=== PATIENT | male | born 1960 | race Caucasian/White ===

== ENCOUNTER 2017-12-27 00:30 | Inpatient (IN) | payer OTHER ==
[2017-12-26 13:25] LABS: INR 0.96
[2017-12-27] VITALS (11 sets, daily range): BP systolic 132–152; BP diastolic 41–98
[~2017-12-27] VITALS: Ht 177.8 cm; Wt 108.0 kg
[~2017-12-27 00:30] MED LIST: ASCO-182 PO; ASPI-1471 PO; ATEN-1 PO; CIDE300T4 PO; LISI20TA29 PO; OMEG-24 PO; SOUR1000 PO; apple cider vinegar PO
[2017-12-27] MEDS ORDERED: LIDOCAINE MPF 1% 5 ML VIAL ONE (07:42)
[2017-12-27] MEDS ORDERED: ONDANSETRON 4 MG/2 ML VIAL ONE (07:42)
[2017-12-27] MEDS ORDERED: DEXAMETHASONE SOD PHOS 10MG/ML ONE (07:42)
[2017-12-27] MEDS ORDERED: fentaNYL CITR 100 MCG/2 ML AMP ONE (07:42)
[2017-12-27] MEDS ORDERED: PROPOFOL EMUL(*) 10MG/ML 20 ML 20 ML ONE (07:42)
[2017-12-27] MEDS ORDERED: ACETAMINOPHEN(*)1000 MG/100 ML 100 ML IVPB ONE (08:34)
[2017-12-27] MEDS ORDERED: LIDOCAINE/SOD BICARB 8.4% SYR ID ONE (09:00)
[2017-12-27] MEDS ORDERED: FAMOTIDINE 20 MG TAB PO ONE (09:00)
[2017-12-27] MEDS ORDERED: ASPIRIN 325 MG ENTERIC COATED PO SCH (09:00)
[2017-12-27] MEDS ORDERED: TRANEXAMIC AC 1000 MG/10ML SDV 1,000 MG in DEXTROSE 5% 50 ML BAG 50 ML IV ONE (09:00)
[2017-12-27] MEDS ORDERED: NORMOSOL R SOLN(*) 1000 ML BAG 1,000 ML IV PRN ×2 (09:00→11:40)
[2017-12-27] MEDS ORDERED: MIDAZOLAM 2 MG/2 ML VIAL IVP ONE (09:00)
[2017-12-27] MEDS ORDERED: ceFAZolin(*) 2GM/D5W 50ML 50 ML IVPB ONE (09:00)
[2017-12-27] MEDS ORDERED: cloNIDine EPIDUR INJ 100MCG/ML 40 MCG, ROPIVACAINE 0.5% 20 ML VIAL 25 ML, EPINEPHrine H... INJ ONE (09:00)
[2017-12-27] MEDS ORDERED: BISACODYL 10 MG SUPP PR PRN (11:40)
[2017-12-27] MEDS ORDERED: MAGNESIUM HYDROXIDE* 30ML UDCP PO PRN (11:40)
[2017-12-27] MEDS ORDERED: PROMETHAZINE 25 MG/ML 1 ML AMP IVP PRN (11:40)
[2017-12-27] MEDS ORDERED: ONDANSETRON 4 MG/2 ML VIAL IVP PRN (11:40)
[2017-12-27] MEDS ORDERED: ZOLPIDEM TARTRATE 5 MG TAB PO PRN (11:40)
[2017-12-27] MEDS ORDERED: MORPHINE SULFATE 30 MG PCA IV PRN (11:40)
[2017-12-27] MEDS ORDERED: NALOXONE HCL 0.4 MG/ML VIAL IVP PRN (11:40)
[2017-12-27] MEDS ORDERED: FLUSH 10 ML SYR IVP PRN (11:40)
[2017-12-27] MEDS: oxyCODONE HCL 5 MG CAP PO PRN ×3 (14:12→21:01)
[2017-12-27] MEDS: ACETAMINOPHEN 500 MG TAB PO SCH ×2 (14:20→19:28)
--- NOTE | 2017-12-27 15:29 | History & Physical ---
History of Present Illness Chief Complaint s/p L-TKA and management of medical conditions during this hospitalization History of Present Illness Mr. Jefferson is a 57 y.o. male with PMH of HTN on Atenolol 50mg and Lisinopril 20mg daily, Gout, Dyslipidemia on Fish oil and Osteoarthritis. He is post op L-TKA by Dr. Hernandez and he tolerated the procedure. He is asymptomatic and without any complaint. I was asked to manage his medical problems during his stay. I have advised him to avoid high oxalate and uric acid diet and beer for his gout and cut down his Vit.C to 500mg/d and also drink more fluids History Home Meds Reported Medications [apple cider vinegar] No Conflict Check, 0.5 OZ PO QDAY 12/20/17 Sour Love Extract (Tart Love Extract) 1,000 Mg Capsule, PO QDAY 12/20/17 Ascorbic Acid (VITAMIN C) 500 Mg Tablet, 1000 MG PO QDAY, TAB 12/20/17 Entiat-3 Fatty Acids/Fish Oil (FISH OIL 1,200 MG SOFTGEL) 1 Each Capsule, 1 EACH PO, CAPSULE 12/20/17 Aspirin (ASPIR 81) 81 Mg Tablet.dr, 81 MG PO QDAY, TAB 12/20/17 Lisinopril (LISINOPRIL) 20 Mg Tablet, 20 MG PO QDAY, TAB 12/20/17 Atenolol (ATENOLOL) 50 Mg Tablet, 1 TAB PO QDAY, TAB 12/20/17 Discontinued Reported Medications Cider Vinegar (APPLE CIDER VINEGAR) 300 Mg Tablet, PO QDAY 12/20/17 Allergies: Coded Allergies: No Known Drug Allergies (Unverified , 12/20/17) Patient History: Patient reports no known family medical history. Hx Smoking: Yes (1/2 ppd 20+ yrs) Smoking Status: Current: Every Day Smoker Hx Alcohol Use: Yes Hx Substance Use Disorder: No Social Drug Use: Never History of IV Drug Use: No Review of Systems Constitutional: No Fever, No Weight Loss, No Weight Gain, No Chills Neurological: No Syncope, No Confusion, No Weakness, No Dizziness Eyes: No Vision Change ENT: No Sinus Congestion, No Sore Throat Cardiovascular: No Chest Pain, No Palpitations Respiratory: No Shortness of Breath, No Cough Gastrointestinal: No Nausea, No Vomiting, No Diarrhea, No Dysphagia, No Constipation, No Abdominal Pain Genitourinary: No Dysuria, No Hematuria Musculoskeletal: Pain, Impaired Mobility, No Sprain, No Strain Psychiatric: No Depression, No Anxiety Exam Vital Signs Vital Signs Date Time Temp Pulse Resp B/P (MAP) Pulse Ox O2 Delivery O2 Flow Rate FiO2 12/27/17 13:00 98.5 61 16 132/41 (71) 93 Nasal Cannula 2.0 General Appearance: Alert, Awake, No Acute Distress, Afebrile Neuro: No Gross deficits Eyes: PERRLA ENT: Normal Neck: No Masses Cardiovascular: Normal Rhythm & Peripheral Pulses Respiratory: No Respiratory Distress GI: Abd Soft and Non-Tender Extremities: Soft and Non Tender (decrease ROM and tender LLE) Integumentary: Skin Intact without Lesion / Mass Psych: Alert & Oriented X3, Appropriate Mood & Affect Assessment and Plan Problems: (1) HTN (hypertension) Status: Chronic Assessment & Plan: I will start his home medications. He already took his Atenolol today I will start his Lisinopril 20mg po qd for his high BP 150/90's Low salt diet (2) S/P total knee arthroplasty Status: Acute Assessment & Plan: Surgical management as per surgeon I will start Aspirin 325mg po qd for DVTP PT/OT and ROM exercises Time Spent on Plan of Care: < 30 min Copies to: AMERICO HERNANDEZ MD Venous Thromboembolism VTE Risk Physician Assess for VTE Risk: Yes Patient's VTE Risk: Low VTE Diagnostic Test 2 Days Prior to Admit: No Antithrombotics Is Pt On Any Antithrombotics?: No Exam Sepsis Risk: No Definite Risk MONIKA CHAVIS MD Dec 27, 2017 15:29
[2017-12-27] MEDS: LISINOPRIL 20 MG TAB PO SCH (15:38)
[2017-12-27] MEDS: ASPIRIN 325 MG ENTERIC COATED PO SCH (15:38)
[2017-12-27] MEDS ORDERED: NS(*) 0.9% 250 ML BAG 250 ML IV PRN (16:40)
[2017-12-27] MEDS: ceFAZolin(*) 2GM/D5W 50ML 50 ML IVPB SCH (16:50)
[2017-12-27] MEDS ORDERED: ceFAZolin 1 GM VIAL IVP SCH (17:00)
--- NOTE | 2017-12-27 19:48 | RADIOLOGY IMAGING REPORT ---
FACILITY: [facility] PATIENT NAME: Gabriel Jefferson : 1960 MR: [id number] V: [id number] EXAM DATE: ORDERING PHYSICIAN: AMERICO NOLAN TECHNOLOGIST: Location: [facility] [place] Patient: Gabriel Jefferson : 1960 Visit/Account:[id number] Date of Sevice: 12/27/2017 Examination: 2 views right knee Comparison: None. History: Postop knee arthroplasty. Findings: Normal postoperative alignment of the right total knee arthroplasty. No periprosthetic frac ture or lucency. Expected postoperative change in the soft tissues. IMPRESSION: Unremarkable postoperative appearance of the right total knee arthroplasty. Report Dictated By: Bjorn Butcher MD at 12/27/2017 7:43 PM Report E-Signed By: Bjorn Butcher MD at 12/27/2017 7:44 PM [id number]
[2017-12-28] VITALS (7 sets, daily range): BP systolic 121–144; BP diastolic 72–86; Ht 177.8 cm; Wt 108.0 kg
[2017-12-28] MEDS: oxyCODONE HCL 5 MG CAP PO PRN ×6 (01:41→21:40)
[2017-12-28] MEDS: ceFAZolin(*) 2GM/D5W 50ML 50 ML IVPB SCH ×2 (01:41→08:25)
[2017-12-28] MEDS: ACETAMINOPHEN 500 MG TAB PO SCH ×4 (01:46→20:40)
[2017-12-28] MEDS: LISINOPRIL 20 MG TAB PO SCH (08:24)
[2017-12-28] MEDS: ATENOLOL 50 MG TAB PO SCH (08:24)
[2017-12-28] MEDS: ASPIRIN 325 MG ENTERIC COATED PO SCH (08:25)
[2017-12-28] MEDS ORDERED: KETAMINE HCL 200 MG/20 ML MDV ONE (09:45)
--- NOTE | 2017-12-28 09:53 | Hospitalist Progress Note ---
Subjective Progress Notes Subjective Mr. Jefferson is a 57 y.o. male with PMH of HTN on Atenolol 50mg and Lisinopril 20mg daily, Gout, Dyslipidemia on Fish oil and Osteoarthritis. He is post op L-TKA by Dr. Hernandez and he tolerated the procedure. He is asymptomatic and without any complaint. I was asked to manage his medical problems during his stay. I have advised him to avoid high oxalate and uric acid diet and beer for his gout and cut down his Vit.C to 500mg/d and also drink more fluids 12/28: He is doing better and using ROM exercises. He is afebrile, hemodynamically and medically stable. No new complaint today. Patient Complains of: Neurological: No: Weakness, Dizziness Cardiovascular: No: Chest Pain, Palpitations Respiratory: No: Cough, Congestion, Shortness of Breath Gastrointestinal: No Nausea, No Vomiting Genitourinary: No Dysuria, No Hematuria Musculoskeletal: Pain, Impaired Mobility, No: Sprain, Strain Physical Exam Vital Signs Date Time Temp Pulse Resp B/P (MAP) Pulse Ox O2 Delivery O2 Flow Rate FiO2 12/28/17 07:10 91 Room Air 12/28/17 07:03 97.7 64 18 124/84 (97) 2.5 Intake and Output 12/29/17 07:00 Intake Total 55 ml Output Total 150 ml Balance -95 ml IV Total 55 ml Output Urine Total 150 ml # Voids 1 General Appearance: Alert, Awake, No Acute Distress, Afebrile Neuro: No Gross deficits ENT: Normal Cardiovascular: Normal Rhythm & Peripheral Pulses Respiratory: No Respiratory Distress GI: Soft and Non-Tender Extremities: Other (L-knee tenderness with decrease ROM) Psych: Appropriate Mood & Affect Result Diagram: 12/28/17 0514 Assessment and Plan Problems: (1) HTN (hypertension) Status: Chronic Assessment & Plan: I will start his home medications. He already took his Atenolol today I will start his Lisinopril 20mg po qd for his high BP 150/90's Low salt diet 12/28: I will continue his current management (2) S/P total knee arthroplasty Status: Acute Assessment & Plan: Surgical management as per surgeon I will start Aspirin 325mg po qd for DVTP PT/OT and ROM exercises 12/28: Management as per surgery and PT Central Venous Access Medical Necessity for Access: IV Access Time Spent on Plan of Care: < 30 min Copies to: AMERICO HERNANDEZ MD Exam Sepsis Risk: No Definite Risk MONIKA CHAVIS MD Dec 28, 2017 09:53
[2017-12-28] MEDS ORDERED: oxyCODONE HCL 5 MG CAP PO ONE (11:45)
--- NOTE | 2017-12-28 16:10 | OPERATIVE REPORT 1 ---
EVENT DATE: December 27, 2017 SURGEON: Andres Hernandez MD ANESTHESIOLOGIST: Jaylon Calhoun MD ANESTHESIA: Spinal followed by general. CREDIT ASSESSMENT ANALYST: Noe Tirado PA-C PREOPERATIVE DIAGNOSIS Left knee degenerative joint disease. POSTOPERATIVE DIAGNOSIS Left knee degenerative joint disease. PROCEDURE PERFORMED Left total knee arthroplasty. IMPLANTS USED MicroPort medial pivot-shift CS system with a 6 tibia, 5 femur, 17 mm CS insert , 8 x 32 symmetric patella, femur cut 6 degrees valgus, 10 mm. Anesthesia gave 1 g of tranexamic acid 10 minutes prior to surgery and after the end of the implantation. I used two packages of [employer] [place] Blue cement and a Zipline wound closure system. Ropivacaine and Toradol cocktail 50 mL was injected at the end of the case. SPECIMENS None. COMPLICATIONS None. BLOOD LOSS Less than 200 mL. DESCRIPTION OF PROCEDURE The patient was given the appropriate preoperative antibiotic. He was brought to the OR where Dr. Calhoun performed spinal, followed by general anesthesia. A left thigh tourniquet was placed. The left lower extremity was prepped in the usual sterile fashion and exsanguinated. No tourniquet was utilized. A midline incision was made, followed by a medial parapatellar arthrotomy. We dissected with the Bovie to achieve hemostasis as we went, and we dissected subperiosteally along the medial tibial plateau to the level of the semimembranosus insertion. The fat pad was excised, and the patella released and everted. We noted grade IV changes on both ends of the femoral condyles, grade II and III changes over the medial tibia plateau, grade II changes over the lateral tibial plateau, grade IV changes in the patella, grade IV changes in the trochlear groove, and grade II and III changes on the patella. The knee was flexed. The ACL and PCL were released subperiosteally by the Bovie, and the remaining articular cartilage was removed from the distal femoral condyles by a sagittal saw. A step-cut drill was utilized to broach the femur canal, and we placed our intramedullary femoral guide. We set up our distal cutting block in 6 degrees valgus, 10 mm. With care taken to protect the soft tissues, the cut was made. A 3-degree external rotation guide and sizer was then positioned referencing off the epicondyles, posterior condyles, and anterior flange. We sized the femur to a #5 and drilled our 3-degree external rotation holes. Z retractors were placed to protect the soft tissue. A four-in-one cutting block was placed, and cuts were made. The tibia was brought anterior to the femur with the appropriate retractors, and the step-cut drill was utilized to broach the tibial canal. The intramedullary tibial guide was then positioned, and we referenced 10 mm off the least involved lateral tibial plateau, set it for rotation, and pinned our block. With care taken to protect the soft tissues, we made our tibial cut. We then utilized air. We then removed the posterior osteophytes by a curved osteotome and elevated the capsule with a Sheldon elevator. Stumps of the AC and PCL and the medial and lateral menisci were removed prior to this by the Bovvlad. I then placed our 6 tibial baseplate referencing from the previous rotation. We pinned this in place. I started with a 14 mm insert, then went up to a 17 mm, placed our femoral trial, and we achieved full extension, flexion of 145 degrees, stability with varus/valgus stress, and a solid end point and anterior drawer. The knee was brought up into slight flexion. We drilled the peg holes, placed our pins on the femur, and cut for a trochlear chip which was then placed. The knee was placed in full extension. The patella was sized to 22 mm in depth. This was cut down 8 mm to accept an 8 x 32 peg hole trial which was positioned inferiorly and medially, and peg holes were drilled. This accepted our trial. Again, we had the aforementioned range of motion and stability, and the patella tracked well. The patellar, femoral, and tibial inserts were removed. We set up appropriate retractors and the tower for the keel punch. We cut, reamed, and punched for our keel, and instrumentation was removed. A bone plug was placed in the distal femur. While we mixed two packages of [employer] [place] Blue cement, we copiously irrigated by pulse lavage and injected 10 mL of our cocktail into the capsule and into the posterior aspect of the joint. After we dried the bone, we started cementing first the tibia, then our permanent 17 mm CS insert, and then our femur. Excess cement was removed and the knee brought into full extension with axial compression while we cemented the patella. After 16 minutes, the cement had hardened. Again, we had the aforementioned range of motion and stability. We copiously irrigated by pulse lavage and injected the remaining 4 mL of our cocktail in the distal quads. We then closed the arthrotomy with #2 Vicryl in [id number] suture fashion, followed by 2-0 Vicryl for the subcutaneous tissues, and after cleaning the wounds, we placed our Zipline wound closure system and applied a dressing. The patient was taken to recovery in stable condition. The hospitalist team will be consulted for medical management and anticoagulation. KARLA
[2017-12-29 01:54] VITALS: BP 141/92
[2017-12-29] MEDS: oxyCODONE HCL 5 MG CAP PO PRN ×3 (01:55→10:38)
[2017-12-29] MEDS: ACETAMINOPHEN 500 MG TAB PO SCH ×2 (01:55→08:43)
[2017-12-29 07:17] VITALS: BP 146/87
[2017-12-29] MEDS: LISINOPRIL 20 MG TAB PO SCH (08:43)
[2017-12-29] MEDS: ATENOLOL 50 MG TAB PO SCH (08:43)
[2017-12-29] MEDS: ASPIRIN 325 MG ENTERIC COATED PO SCH (08:43)
[2017-12-29] MEDS ORDERED: ASPI-764 PO (10:57)
[2017-12-29] MEDS ORDERED: OXYC-869 PO (11:45)
--- NOTE | 2017-12-29 13:25 | Hospitalist Progress Note ---
Subjective Progress Notes Subjective He reports doing well. No current complaints. Physical Exam Vital Signs Date Time Temp Pulse Resp B/P (MAP) Pulse Ox O2 Delivery O2 Flow Rate FiO2 12/29/17 08:04 86 12/29/17 07:23 Nasal Cannula 1.5 12/29/17 07:17 98.2 86 16 146/87 (106) General Appearance: Alert, Awake Cardiovascular: Regular Rate and Rhythm Respiratory: Clear to Auscultation Result Diagram: 12/29/17 0520 Assessment and Plan Problems: (1) HTN (hypertension) Status: Chronic Assessment & Plan: He will continue his usual regimen with atenolol and lisinopril. (2) S/P total knee arthroplasty Status: Acute Assessment & Plan: As per Dr. Hernandez. He will be on aspirin 325mg po qd for DVT prophylaxis. Central Venous Access Medical Necessity for Access: IV Access Exam Sepsis Risk: No Definite Risk ABIGAIL LEONARD MD Dec 29, 2017 13:24
== END 2017-12-29 12:15 | disposition home or self-care (01) | DRG 470 ==
LOC: OR 00:30 → OBSVTOIN 12:53 → INTOOBSV 12:53 → MED 12:53 → UNDOADMOB 12:53
PROVIDERS: ADMIT Orthopaedic Surgery; ATTEND Orthopaedic Surgery
PROC: 0SRD0J9 Replacement of Left Knee Joint with Synthetic Substitute, Cemented, Open Approach (ICD-10-PCS; principal; 2017-12-27 09:30)
DX: M17.12 Unilateral primary osteoarthritis, left knee (principal); S83.242A Other tear of medial meniscus, current injury, left knee, initial encounter; S83.512A Sprain of anterior cruciate ligament of left knee, initial encounter; I10 Essential (primary) hypertension; M1A.9XX0 Chronic gout, unspecified, without tophus (tophi); E78.5 Hyperlipidemia, unspecified; F17.210 Nicotine dependence, cigarettes, uncomplicated
CPT/HCPCS: 36415; 85014; 85018; 85610; 86850; 86900; 86901; J0131; J0171; J0690; J0735; J1100; J1885; J2001; J2250; J2405; J2704; J2795; J3010; J3490; J7050; J7060